=== PATIENT | male | born 1990 | race Caucasian/White ===

== ENCOUNTER 2017-01-26 14:00 | Emergency (ER) | payer OTHER ==
--- NOTE | 2017-01-26 15:04 | DIAGNOSTIC IMAGING REPORT ---
PROCEDURE: XR HAND 3 OR 4 VIEWS - RIGHT INDICATION: TRAUMA/INJURY TECHNIQUE: Four views. COMPARISON: None. FINDINGS: Osseous structures and joint spaces are normal. IMPRESSION: 1. Normal right hand.
--- NOTE | 2017-01-26 15:40 | ED NURSING NOTES ---
Clinical Report - Nurses [facility] [place] [address] 01/26/2017 14:01 Patient: BRAULIO KAYE TRIAGE Triage time 14:07. Acuity: LEVEL 4. Chief Complaint: RIGHT UPPER EXTREMITY PAIN and SWELLING. Location of symptoms- right hand. LEFT UPPER EXTREMITY PAIN. Location of symptoms- left hand. --14:15 Corey Shin R.N. 14:07 01/26/17. BP: 120/68. HR: 65. RR: 14. O2 saturation: 100%. Temp: 98.1 F (oral). Pain level now: 01/17. --14:15 Corey Shin R.N. Weight: 63.5 kg stated. Height/Length: 68 inches Per Patient. BMI: 21.3. --14:14 Corey Shin R.N. Medications None. --14:11 Corey Shin R.N. Medication/allergy information source: the patient. --14:15 Corey Shin R.N. Allergies No Known Drug Allergy. --14:11 Corey Shin R.N. History Historian: patient. Accompanied by family. ( Punched a tree with both his fists and injured both his hands. Multiple abrasions on knuckles and obvious swelling on the right hand.). Injury occurred. This occurred just prior to arrival. Occurred at home. 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 PAST MEDICAL HX: Tetanus status: unknown. SOCIAL HX: Smoker- current status unknown. Alcohol use; consumes beer occasionally. History of drug use: marijuana. Recently used drugs just prior to arrival and today. --14:15 Corey Shin R.N. PROBLEMS: Dental Trauma. Laceration. Contusion. Tetanus Status. Last Tetanus. Allergies. --14:12 Corey Shin R.N. Interventions ID band on patient. To room. --14:15 Corey Shin R.N. PHYSICAL ASSESSMENT Ambulatory to room. GENERAL / NEURO / PSYCH: Oriented X 4. Alert. Appears in no acute distress. Appears in pain. EXTREMITIES: Limited ROM present in the right hand. Neuro-vascular status intact to the extremity. Right hand: tenderness, swelling and multiple superficial abrasions. Left hand: tenderness and multiple superficial abrasions. SKIN: Skin is warm and dry. --14:16 Corey Shin R.N. NURSING PROGRESS NOTES Cold pack applied. Extremity elevated. Patient identifiers checked. Call light placed in reach. Side rails up x 1. Bed placed in lowest position. Brakes of bed on. Patient ready for evaluation- chart flagged and ED physician and MINE MOTOR OPERATOR notified. --14:16 Corey Shin R.N. 15:05 01/26/2017 TDAP IM 0.5 mL given. (Lot#: [id number], expiration date: 12/18/2018, Hide Buffer: sanofi pasteur). Given in the right deltoid. Allergies verified and confirmed 5 rights. Vaccine information statement provided to the patient. --15:05 Corey Shin R.N. Wound cleansed with sterile saline. GENERAL / NEURO / PSYCH: The patient reports pain that is located in the right hand and left hand. Alert. Oriented X 4. RESPIRATORY: No respiratory distress. CVS: Capillary refill less than 2 seconds. EXTREMITIES: Neuro-vascular status intact to the extremity. SKIN: Skin is warm. --15:18 Corey Shin R.N. 15:17 01/26/17. BP: 120/68. HR: 85. RR: 16. Pain level now: 02/16. --15:18 Corey Shin R.N. 15:51 01/26/2017 Motrin PO Tablets 800 mg given. Allergies verified and confirmed 5 rights. --15:56 Corey Shin R.N. DISPOSITION / DISCHARGE No learning barriers present. Discharge instructions provided and reviewed with the patient. Reviewed medication(s) side effects, precautions, dosing and course information. Prescription(s) given to the patient. Reviewed referral to a primary care physician for followup. Activity restrictions (minimal use of injured extremity) reviewed. Work note given. Patient verbalized understanding. Written instructions provided in [place]. The patient was discharged home and accompanied by family. He left the Emergency Department ambulatory and via private vehicle. Parent driving. --15:57 Corey Shin R.N. 15:56 01/26/17. BP: 118/69. HR: 72. RR: 16. O2 saturation: 100%. Temp: 98.1 F (oral). Pain level now: 10. --15:57 Corey Shin R.N. Departure time: 15:57. --15:57 Corey Shin R.N. Locked/Released at 01/26/2017 15:58 by Corey Shin R.N.
--- NOTE | 2017-01-26 15:40 | ED ORDER SUMMARY ---
..... Patient: BRAULIO KAYE OrderSheet [facility] VisitID: [id number] [place] [place] [address] 26y, M Registration Date/Time: 01/26/2017 ORDER SHEET Weight: 63.5 kg (stated) Allergies: No Known Drug Allergy GENERAL ORDERS: Hand 3 or 4V Right Urgent (14:32 01/26/2017 EKlidia P.A.-C) (Ack 14:36 LNations ER Tech1) (15:58 CHernandez R.N.) Wound Irrigation (14:32 01/26/2017 EKkyleighleva P.A.-C) (Ack 14:57 CHernandez R.N.) (15:07 Aleidanandez R.N.) MEDICATION ORDERS: Tdap IM 0.5 mL (NOW, per protocol) (14:32 01/26/2017 Heavenly P.A.-C) (Ack 14:57 Eric R.N.) (15:05 Eric R.N.) Motrin PO 800 mg (NOW) (15:26 01/26/2017 EKoroleva P.A.-C) (Ack 15:30 Aleidanandez R.N.) (15:56 Aleidanandez R.N.) IV FLUIDS: ORDER SHEET NOTES: [Electronically signed by Candis PowersANazanin-Ced (15:42 01/26/2017)] [Electronically signed by Corey Shin R.N. (15:58 01/26/2017)] [Electronically locked/signed by Corey hSin R.N. (15:58 01/26/2017)]
--- NOTE | 2017-01-26 15:40 | ED ORDER SUMMARY ---
..... Patient: BRAULIO KAYE OrderSheet [facility] VisitID: [id number] [place] [address] 26y, M Registration Date/Time: 01/26/2017 ORDER SHEET Weight: 63.5 kg (stated) Allergies: No Known Drug Allergy GENERAL ORDERS: Hand 3 or 4V Right Urgent (14:32 01/26/2017 EKlidia P.A.-C) (Ack 14:36 LNations ER Tech1) (15:58 CHernandez R.N.) Wound Irrigation (14:32 01/26/2017 EKkyleighleva P.A.-C) (Ack 14:57 CHernandez R.N.) (15:07 Aleidanandez R.N.) MEDICATION ORDERS: Tdap IM 0.5 mL (NOW, per protocol) (14:32 01/26/2017 Heavenly P.A.-C) (Ack 14:57 Eric R.N.) (15:05 Eric R.N.) Motrin PO 800 mg (NOW) (15:26 01/26/2017 EKoroleva P.A.-C) (Ack 15:30 Aleidanandez R.N.) (15:56 Aleidanandez R.N.) IV FLUIDS: ORDER SHEET NOTES: [Electronically signed by Candis PowersANazanin-Ced (15:42 01/26/2017)] [Electronically signed by Corey Shin R.N. (15:58 01/26/2017)] [Electronically locked/signed by Corey Shin R.N. (15:58 01/26/2017)]
--- NOTE | 2017-01-26 15:40 | ED CLINICAL REPORT ---
Clinical Report - Physicians/Mid Levels [facility] [address] [place] [address] 01/26/2017 14:01 [id number] Time Seen: 14:31 Jan 26 2017. Arrived- By private vehicle. Historian- patient. HISTORY OF PRESENT ILLNESS Chief Complaint: Injury to the right hand. The injury happened just prior to arrival. The patient sustained a direct blow and crush injury. Patient is experiencing moderate pain. Patient denies injury to the head. ( right-hand dominant patient, who pushed a tree branch arrival bilateral hands, pain primarily to his right hand. Denies any prior injuries of the left or right hand. Did not punch and one in the mouth. Unsure last tetanus immunization. Patient reports since it occurred just prior to arrival. She reports smoking marijuana prior to arrival.). REVIEW OF SYSTEMS The patient has had swelling. No skin laceration. PAST HISTORY The patient's dominant hand is the right. Tetanus immunization status is unknown. SOCIAL HISTORY Alcohol use. History of drug use: marijuana. ADDITIONAL NOTES The nursing notes have been reviewed. PHYSICAL EXAM Appearance: Alert. No acute distress. Head: Head atraumatic. ENT: Nose normal. Pharynx normal. No pharyngeal erythema. Neck: Normal inspection. CVS: Normal heart rate and rhythm. Heart sounds normal. Respiratory: No respiratory distress. Breath sounds normal. Chest nontender. Skin: Skin warm. (abrasions on drosal aspect of right/ left hand mcp aspects, no lacerations). Extremities: Anatomic snuffbox, right arm: No swelling. Dorsal right hand: (swelling to 2-4th mcp, with pain/ tenderness and abrasions.). Dorsal left hand: small abrasion of the central aspect of the dorsal hand. Neurovascular intact distally. No tenderness, puncture wound or deformity. No limitation of extension. Soft tissue tenderness present. Bony tenderness present. No signs of infection present. Neuro, Vascular and Tendons: Vascular status intact. Sensation intact. Motor intact. LABS, X-RAYS, AND EKG Rt Hand X-ray: (IMPRESSION: 1. Normal right hand. Electronically Final signed by:Srinivas Ogden MD 01/26/2017 3:05:25 PM). PROGRESS AND PROCEDURES Course of Care: patient was pretty fair range of motion, small abrasions of the metacarpal dorsal aspects, with no signs of underlying fracture. Patient otherwise very stable. No other lesions. Denies any injury from the mouth. Patient will f/u outpatient as needed. Tdap in ER. Patient is stable. Symptoms better. Patient/family counseled. Disposition: Discharged. CLINICAL IMPRESSION Multiple superficial abrasions to the right hand and left hand.Treatment of abrasion not delayed. No infection or abrasion with foreign body present. Crush injury to the right hand and left hand. INSTRUCTIONS Apply ice. Protect wound and keep wound area clean. Apply bacitracin twice daily. 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 OTC Medications: Motrin IB 200 mg (available over the counter): take 4 orally every 8 hours as needed for pain Follow-up: Follow up with your doctor. Understanding of the discharge instructions verbalized by patient. (Electronically signed by Candis Powers P.A.-C 01/26/2017 15:42)
--- NOTE | 2017-01-26 15:40 | ED NURSING NOTES ---
Clinical Report - Nurses [facility] [place] [address] 01/26/2017 14:01 Patient: BRAULIO KAYE TRIAGE Triage time 14:07. Acuity: LEVEL 4. Chief Complaint: RIGHT UPPER EXTREMITY PAIN and SWELLING. Location of symptoms- right hand. LEFT UPPER EXTREMITY PAIN. Location of symptoms- left hand. --14:15 Corey Shin R.N. 14:07 01/26/17. BP: 120/68. HR: 65. RR: 14. O2 saturation: 100%. Temp: 98.1 F (oral). Pain level now: 01/17. --14:15 Corey Shin R.N. Weight: 63.5 kg stated. Height/Length: 68 inches Per Patient. BMI: 21.3. --14:14 Corey Shin R.N. Medications None. --14:11 Corey Shin R.N. Medication/allergy information source: the patient. --14:15 Corey hSin R.N. Allergies No Known Drug Allergy. --14:11 Corey Shin R.N. History Historian: patient. Accompanied by family. ( Punched a tree with both his fists and injured both his hands. Multiple abrasions on knuckles and obvious swelling on the right hand.). Injury occurred. This occurred just prior to arrival. Occurred at home. 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 PAST MEDICAL HX: Tetanus status: unknown. SOCIAL HX: Smoker- current status unknown. Alcohol use; consumes beer occasionally. History of drug use: marijuana. Recently used drugs just prior to arrival and today. --14:15 Corey Shin R.N. PROBLEMS: Dental Trauma. Laceration. Contusion. Tetanus Status. Last Tetanus. Allergies. --14:12 Corey Shin R.N. Interventions ID band on patient. To room. --14:15 Corey Shin R.N. PHYSICAL ASSESSMENT Ambulatory to room. GENERAL / NEURO / PSYCH: Oriented X 4. Alert. Appears in no acute distress. Appears in pain. EXTREMITIES: Limited ROM present in the right hand. Neuro-vascular status intact to the extremity. Right hand: tenderness, swelling and multiple superficial abrasions. Left hand: tenderness and multiple superficial abrasions. SKIN: Skin is warm and dry. --14:16 Corey Shin R.N. NURSING PROGRESS NOTES Cold pack applied. Extremity elevated. Patient identifiers checked. Call light placed in reach. Side rails up x 1. Bed placed in lowest position. Brakes of bed on. Patient ready for evaluation- chart flagged and ED physician and DRILLING SUPERVISOR notified. --14:16 Corey Shin R.N. 15:05 01/26/2017 TDAP IM 0.5 mL given. (Lot#: [id number], expiration date: 12/18/2018, Internet Marketing Assistant: sanofi pasteur). Given in the right deltoid. Allergies verified and confirmed 5 rights. Vaccine information statement provided to the patient. --15:05 Corey Shin R.N. Wound cleansed with sterile saline. GENERAL / NEURO / PSYCH: The patient reports pain that is located in the right hand and left hand. Alert. Oriented X 4. RESPIRATORY: No respiratory distress. CVS: Capillary refill less than 2 seconds. EXTREMITIES: Neuro-vascular status intact to the extremity. SKIN: Skin is warm. --15:18 Corey Shin R.N. 15:17 01/26/17. BP: 120/68. HR: 85. RR: 16. Pain level now: 02/16. --15:18 Corey Shin R.N. 15:51 01/26/2017 Motrin PO Tablets 800 mg given. Allergies verified and confirmed 5 rights. --15:56 Corey Shin R.N. DISPOSITION / DISCHARGE No learning barriers present. Discharge instructions provided and reviewed with the patient. Reviewed medication(s) side effects, precautions, dosing and course information. Prescription(s) given to the patient. Reviewed referral to a primary care physician for followup. Activity restrictions (minimal use of injured extremity) reviewed. Work note given. Patient verbalized understanding. Written instructions provided in Citizen [place]. The patient was discharged home and accompanied by family. He left the Emergency Department ambulatory and via private vehicle. Parent driving. --15:57 Corey Shin R.N. 15:56 01/26/17. BP: 118/69. HR: 72. RR: 16. O2 saturation: 100%. Temp: 98.1 F (oral). Pain level now: 10. --15:57 Corey Shin R.N. Departure time: 15:57. --15:57 Corey Shin R.N. Locked/Released at 01/26/2017 15:58 by Corey Shin R.N.
--- NOTE | 2017-01-26 15:40 | ED CLINICAL REPORT ---
Clinical Report - Physicians/Mid Levels [facility] [address] [place] [place] [address] 01/26/2017 14:01 [id number] Time Seen: 14:31 Jan 26 2017. Arrived- By private vehicle. Historian- patient. HISTORY OF PRESENT ILLNESS Chief Complaint: Injury to the right hand. The injury happened just prior to arrival. The patient sustained a direct blow and crush injury. Patient is experiencing moderate pain. Patient denies injury to the head. ( right-hand dominant patient, who pushed a tree branch arrival bilateral hands, pain primarily to his right hand. Denies any prior injuries of the left or right hand. Did not punch and one in the mouth. Unsure last tetanus immunization. Patient reports since it occurred just prior to arrival. She reports smoking marijuana prior to arrival.). REVIEW OF SYSTEMS The patient has had swelling. No skin laceration. PAST HISTORY The patient's dominant hand is the right. Tetanus immunization status is unknown. SOCIAL HISTORY Alcohol use. History of drug use: marijuana. ADDITIONAL NOTES The nursing notes have been reviewed. PHYSICAL EXAM Appearance: Alert. No acute distress. Head: Head atraumatic. ENT: Nose normal. Pharynx normal. No pharyngeal erythema. Neck: Normal inspection. CVS: Normal heart rate and rhythm. Heart sounds normal. Respiratory: No respiratory distress. Breath sounds normal. Chest nontender. Skin: Skin warm. (abrasions on drosal aspect of right/ left hand mcp aspects, no lacerations). Extremities: Anatomic snuffbox, right arm: No swelling. Dorsal right hand: (swelling to 2-4th mcp, with pain/ tenderness and abrasions.). Dorsal left hand: small abrasion of the central aspect of the dorsal hand. Neurovascular intact distally. No tenderness, puncture wound or deformity. No limitation of extension. Soft tissue tenderness present. Bony tenderness present. No signs of infection present. Neuro, Vascular and Tendons: Vascular status intact. Sensation intact. Motor intact. LABS, X-RAYS, AND EKG Rt Hand X-ray: (IMPRESSION: 1. Normal right hand. Electronically Final signed by:Srinivas Ogden MD 01/26/2017 3:05:25 PM). PROGRESS AND PROCEDURES Course of Care: patient was pretty fair range of motion, small abrasions of the metacarpal dorsal aspects, with no signs of underlying fracture. Patient otherwise very stable. No other lesions. Denies any injury from the mouth. Patient will f/u outpatient as needed. Tdap in ER. Patient is stable. Symptoms better. Patient/family counseled. Disposition: Discharged. CLINICAL IMPRESSION Multiple superficial abrasions to the right hand and left hand.Treatment of abrasion not delayed. No infection or abrasion with foreign body present. Crush injury to the right hand and left hand. INSTRUCTIONS Apply ice. Protect wound and keep wound area clean. Apply bacitracin twice daily. 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 OTC Medications: Motrin IB 200 mg (available over the counter): take 4 orally every 8 hours as needed for pain Follow-up: Follow up with your doctor. Understanding of the discharge instructions verbalized by patient. (Electronically signed by Candis Powers P.A.-C 01/26/2017 15:42)
--- NOTE | 2017-01-26 15:58 | ED MAR SUMMARY ---
..... Medication Administration Record [facility] [address] [place] [address] Patient: BRAULIO KAYE Visit ID: [id number] 26y, M Weight: 63.5 kg Height/Length: 68 in BMI: 21.3 ALLERGIES: No Known Drug Allergy Given 15:05 01/26/2017 Corey Shin RReynold Medication Administered: TDAP [IM], Dose: 0.5 mL IM. Medication Ordered: Tdap IM 0.5 mL (NOW, per protocol). Given 15:51 01/26/2017 Corey Shin RNazaninNNazanin Medication Administered: MOTRIN [PO], Dose: 800 mg Tablets PO. Medication Ordered: Motrin PO 800 mg (NOW).
--- NOTE | 2017-01-26 15:58 | ED MAR SUMMARY ---
..... Medication Administration Record [facility] [address] [place] [address] Patient: BRAULIO KAYE Visit ID: [id number] 26y, M Weight: 63.5 kg Height/Length: 68 in BMI: 21.3 ALLERGIES: No Known Drug Allergy Given 15:05 01/26/2017 Corey Shin RReynold Medication Administered: TDAP [IM], Dose: 0.5 mL IM. Medication Ordered: Tdap IM 0.5 mL (NOW, per protocol). Given 15:51 01/26/2017 Corey Shin RNazaninNNazanin Medication Administered: MOTRIN [PO], Dose: 800 mg Tablets PO. Medication Ordered: Motrin PO 800 mg (NOW).
--- NOTE | 2017-01-26 15:58 | ED MED RECONCILIATION SUMMARY ---
Patient: BRAULIO KAYE Medication Reconciliation Report [facility] VisitID: [id number] [address] [place] [address] 26y, M Registration Date/Time: 01/26/2017 Weight: 63.5 kg Height/Length: 68 in. BMI: 21.3 ALLERGIES: No Known Drug Allergy The patient's Home Medications are listed below: NONE. The source(s) of the original Home Medication information: patient The following Medications were given to the patient in the Emergency Department: TDAP [IM] IM 0.5 mL, administered: 01/26/2017 3:05:00 PM Motrin [PO] PO 800 mg, administered: 01/26/2017 3:51:00 PM The following Medications were prescribed to the patient: Motrin IB 200 mg (available over the counter): take 4 orally every 8 hours as needed for pain -- Candis Powers, PNazaninANazanin-C
--- NOTE | 2017-01-26 15:58 | ED MED RECONCILIATION SUMMARY ---
Patient: BRAULIO KAYE Medication Reconciliation Report [facility] VisitID: [id number] [address] [place] [address] 26y, M Registration Date/Time: 01/26/2017 Weight: 63.5 kg Height/Length: 68 in. BMI: 21.3 ALLERGIES: No Known Drug Allergy The patient's Home Medications are listed below: NONE. The source(s) of the original Home Medication information: patient The following Medications were given to the patient in the Emergency Department: TDAP [IM] IM 0.5 mL, administered: 01/26/2017 3:05:00 PM Motrin [PO] PO 800 mg, administered: 01/26/2017 3:51:00 PM The following Medications were prescribed to the patient: Motrin IB 200 mg (available over the counter): take 4 orally every 8 hours as needed for pain -- Candis Powers, PNazaninANazanin-C
--- NOTE | 2017-01-26 15:58 | ED DISCHARGE INSTRUCTIONS ---
Patient: BRAULIO KAYE General Instructions [facility] VisitID: [id number] [place] [address] 26y, M Registration Date/Time: 01/26/2017 Multiple superficial abrasions to the right hand and left hand.Treatment of abrasion not delayed. No infection or abrasion with foreign body present. Crush injury to the right hand and left hand. INSTRUCTIONS Apply ice. Protect wound and keep wound area clean. Apply bacitracin twice daily. 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 OTC Medications: Motrin IB 200 mg (available over the counter): take 4 orally every 8 hours as needed for pain Follow-up: Follow up with your doctor. Understanding of the discharge instructions verbalized by patient. ADDITIONAL INFORMATION Abrasions Abrasions are skin scrapes. Their treatment depends on how large and deep the abrasion is. Home Care: If you were given a bandage, change it once a day. If your bandage sticks to the wound, soak it in warm water until it loosens. Wash the area with soap and water to remove all the cream/ointment. You may do this in a sink, under a tub faucet or shower. Rinse off the soap and pat dry with a clean towel. Reapply cream/ointment according to your doctor's instructions. This will prevent infection and help prevent the bandage from sticking. Cover the wound with a fresh non-stick bandage (Telfa). Repeat steps 1 to 4 daily, or as directed by your doctor. If the bandage becomes wet or dirty, change it as soon as possible. You may use acetaminophen (Tylenol) or ibuprofen (Motrin, Advil) to control pain, unless another pain medicine was prescribed. [ NOTE : If you have chronic liver or kidney disease or ever had a stomach ulcer or GI bleeding, talk with your doctor before using these medicines.] Do not use ibuprofen in children under six months of age. Follow Up with your physician or this facility as directed by our staff. Most skin wounds heal within ten days. However, an infection may occur despite proper treatment. Therefore, look for the early signs of infection listed below. Get Prompt Medical Attention if any of the following occur: Increasing pain in the wound Increasing redness or swelling Pus coming from the wound Fever of 100.4F (38C) or higher, or as directed by your healthcare provider Crush Injury: Hand [No Fx] You have a CRUSH INJURY of your HAND. This causes local pain, swelling and sometimes bruising. There are no broken bones. This injury may take from a few days to a few weeks to heal. If the FINGERNAIL has been severely injured, it may fall off in 1-2 weeks. A new one will usually start to grow back within a month. Home Care: Keep your hand elevated to reduce pain and swelling. When sitting or lying down elevate your arm above the level of your heart. You can do this by placing your arm on a pillow that rests on your chest or on a pillow at your side. This is most important during the first 48 hours after injury. Apply an ice pack (ice cubes in a plastic bag, wrapped in a towel) over the injured area for 20 minutes every 1-2 hours the first day for pain relief. Continue this 3-4 times a day until the pain and swelling goes away. You may use acetaminophen (Tylenol) or ibuprofen (Motrin, Advil) to control pain, unless another pain medicine was prescribed. [ NOTE : If you have chronic liver or kidney disease or ever had a stomach ulcer or GI bleeding, talk with your doctor before using these medicines.] Keep the splint/cast dry at all times. Bathe with your splint/cast well out of the water, protected with a large plastic bag, rubber-banded at the top end. If a fiberglass cast or splint gets wet, you can dry it with a hair-dryer. Follow Up with your doctor as advised if you are not starting to improve within the next THREE days. [NOTE: If X-rays were taken, they will be reviewed by a radiologist. You will be notified of any new findings that may affect your care.] Get Prompt Medical Attention if any of the following occur: The plaster cast or splint becomes wet or soft The fiberglass cast or splint remains wet for more than 24 hours Increased tightness or pain under the cast or splint Fingers become swollen, cold, blue, numb or tingly Redness, warmth, swelling, drainage from the wound, or foul odor from a cast or splint Fever of 100.4F(38C) or higher, or as directed by your healthcare provider Ibuprofen Oral tablet What is this medicine? IBUPROFEN (eye BYOO proe fen) is a non-steroidal anti-inflammatory drug (NSAID). It is used for dental pain, fever, headaches or migraines, osteoarthritis, rheumatoid arthritis, or painful monthly periods. It can also relieve minor aches and pains caused by a cold, flu, or sore throat. How should I use this medicine? Take this medicine by mouth with a glass of water. Follow the directions on the prescription label. Take this medicine with food if your stomach gets upset. Try to not lie down for at least 10 minutes after you take the medicine. Take your medicine at regular intervals. Do not take your medicine more often than directed. A special MedGuide will be given to you by the pharmacist with each prescription and refill. Be sure to read this information carefully each time. Talk to your engraver pantograph regarding the use of this medicine in children. Special care may be needed. What side effects may I notice from receiving this medicine? Side effects that you should report to your doctor or health home health care respiratory therapist as soon as possible: allergic reactions like skin rash, itching or hives, swelling of the face, lips, or tongue black or bloody stools, blood in the urine or in vomit breathing problems changes in vision chest pain general ill feeling or flu-like symptoms nausea or vomiting redness, blistering, peeling or loosening of the skin, including inside the mouth slurred speech or weakness on one side of the body stomach pain unexplained weight gain or swelling unusually weak or tired yellowing of eyes or skin Side effects that usually do not require medical attention (report to your doctor or health home health care respiratory therapist if they continue or are bothersome): constipation or diarrhea dizziness gas or heartburn stomach upset What may interact with this medicine? Do not take this medicine with any of the following medications: cidofovir ketorolac methotrexate pemetrexed This medicine may also interact with the following medications: alcohol aspirin diuretics lithium other drugs for inflammation like prednisone warfarin What if I miss a dose? If you miss a dose, take it as soon as you can. If it is almost time for your next dose, take only that dose. Do not take double or extra doses. Where should I keep my medicine? Keep out of the reach of children. Store at room temperature between 15 and 30 degrees C (59 and 86 degrees F). Keep container tightly closed. Throw away any unused medicine after the expiration date. What should I tell my health care provider before I take this medicine? They need to know if you have any of these conditions: asthma cigarette smoker drink more than 3 alcohol containing drinks a day heart disease or circulation problems such as heart failure or leg edema (fluid retention) high blood pressure kidney disease liver disease stomach bleeding or ulcers an unusual or allergic reaction to ibuprofen, aspirin, other NSAIDS, other medicines, foods, dyes, or preservatives or trying to get breast-feeding What should I watch for while using this medicine? Tell your doctor or healthcare professional if your symptoms do not start to get better or if they get worse. This medicine does not prevent heart attack or stroke. In fact, this medicine may increase the chance of a heart attack or stroke. The chance may increase with longer use of this medicine and in people who have heart disease. If you take aspirin to prevent heart attack or stroke, talk with your doctor or health home health care respiratory therapist. Do not take other medicines that contain aspirin, ibuprofen, or naproxen with this medicine. Side effects such as stomach upset, nausea, or ulcers may be more likely to occur. Many medicines available without a prescription should not be taken with this medicine. This medicine can cause ulcers and bleeding in the stomach and intestines at any time during treatment. Ulcers and bleeding can happen without warning symptoms and can cause . To reduce your risk, do not smoke cigarettes or drink alcohol while you are taking this medicine. You may get drowsy or dizzy. Do not drive, use machinery, or do anything that needs mental alertness until you know how this medicine affects you. Do not stand or sit up quickly, especially if you are an older patient. This reduces the risk of dizzy or fainting spells. This medicine can cause you to bleed more easily. Try to avoid damage to your teeth and gums when you brush or floss your teeth. 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 (Electronically signed by Candis Powers P.A.-C 01/26/2017 15:42)
== END 2017-01-26 15:57 | disposition home or self-care (01) ==
LOC: ED SRH 14:00
DX: S60.511A Abrasion of right hand, initial encounter (principal); S60.512A Abrasion of left hand, initial encounter; W23.0XXA Caught, crushed, jammed, or pinched between moving objects, initial encounter; Y93.89 Activity, other specified; Y92.019 Unspecified place in single-family (private) house as the place of occurrence of the external cause; Y99.8 Other external cause status; Z23 Encounter for immunization